=== PATIENT | female | born 1955 | race Native Hawaiian/Other Pacific Islander ===

== ENCOUNTER 2019-07-03 08:37 | Outpatient (CLI) | payer OTHER | END 2019-07-03 20:14 | disposition home or self-care (01) | LOC: MAMMO 08:37 | DX: Z12.31 Encounter for screening mammogram for malignant neoplasm of breast (principal) ==

== ENCOUNTER 2020-10-29 09:19 | Outpatient (CLI) | payer OTHER | END 2020-10-29 22:40 | disposition home or self-care (01) | LOC: INF 09:19 | PROVIDERS: ATTEND Internal Medicine | DX: Z23 Encounter for immunization (principal) | CPT/HCPCS: 96372 ==

== ENCOUNTER 2020-11-20 09:02 | Outpatient (CLI) | payer OTHER | END 2020-11-20 19:35 | disposition home or self-care (01) | LOC: INF 09:02 | PROVIDERS: ATTEND Internal Medicine | DX: Z23 Encounter for immunization (principal) | CPT/HCPCS: 96372 ==

== ENCOUNTER 2022-10-27 11:16 | Outpatient (CLI) | payer OTHER | END 2022-10-27 19:21 | disposition home or self-care (01) | LOC: US 11:16 | PROVIDERS: ATTEND Family Medicine | DX: M79.89 Other specified soft tissue disorders (principal) | CPT/HCPCS: 36415; 80048; 83880 ==

== ENCOUNTER 2022-11-08 09:46 | Outpatient (CLI) | payer OTHER | END 2022-11-08 19:00 | disposition home or self-care (01) | LOC: RAD 09:46 | PROVIDERS: ATTEND Nurse Practitioner Primary Care | DX: Z13.820 Encounter for screening for osteoporosis (principal); Z12.31 Encounter for screening mammogram for malignant neoplasm of breast; N95.8 Other specified menopausal and perimenopausal disorders ==